=== PATIENT | male | born 1985 | race Caucasian/White ===

== ENCOUNTER 2021-11-13 20:11 | Inpatient (IN) | payer MEDICARE, SELFPAY ==
--- NOTE | ~2021-11-13 | CT_ITS ---
EXAMINATION: CT FEMUR WITH CONTRAST, LEFT CLINICAL INFORMATION: Erythema and swelling of the thigh. Rule out abscess. COMPARISON: None TECHNIQUE: Multidetector CT imaging of the left femur was performed after administration of 85 mL Omnipaque 350 intravenous contrast. Coronal and sagittal reformats are reviewed. This CT examination was performed using dose optimization techniques as appropriate, variously including the following: *Automated exposure control *Adjustment of mA and/or kV according to patient size (this includes techniques or standardized protocols for targeted exams where dose is matched to indication/reason for exam; i.e. extremities or head) *Use of iterative reconstruction technique DLP: 395 mGy-cm FINDINGS: There is a 12.5 x 7.3 x 5.9 cm peripherally enhancing collection in the left tensor fascia josé miguel muscle belly. There is surrounding fluid and stranding obscuring the fat planes between the tensor fascia josé miguel and adjacent rectus femoris and vastus lateralis. Fluid extends inferiorly from the collection along the fascia overlying the vastus lateralis. Extensive skin thickening and subcutaneous fat stranding throughout the proximal left thigh predominating laterally and anteriorly. There are smaller subcutaneous focal areas of phlegmonous change / developing abscesses, for example along the anterior thigh measuring 4.4 x 2.8 x 3.8 cm and along the lateral thigh, less well-defined measuring approximately 3.9 x 2.9 x 4.2 cm. There are a couple additional smaller focal densities in the lateral subcutaneous fat likely representing areas of additional phlegmonous change. No hip joint effusion. The inflammatory changes do not appear to involve the hip joint. No periosteal reaction or cortical destruction to suggest osteomyelitis. Mildly enlarged left inguinal lymph nodes with perilymphatic fat stranding compatible with reactive lymphadenitis. Imaged viscera are unremarkable. CT/CT femur LT w IV con IMPRESSION: * Large collection within the left tensor fascia josé miguel measuring up to 13 cm most compatible with an intramuscular abscess. There is obscuration/obliteration of the fat planes between this collection and the underlying rectus Morison masses lateralis. There may also be myositis of these muscles, however no definite abscess formation within. * Extensive skin thickening and subcutaneous fat stranding throughout the left thigh reflective of cellulitis. There are 2 dominant subcutaneous focal areas of inflammation reflective of phlegmonous change/developing abscesses as described. * No evidence of osteomyelitis or involvement of the left hip joint at this time. This critical result was discussed with Dr Gab Castle at 11/14/2021 12:04 AM and it was ascertained that the content and urgency of the report was understood at the time of direct communication.
[2021-11-13 20:24] VITALS: BP 139/83; PULSE 122; RESP 20; TEMP 38.3; O2SAT 96; BMI 29.2
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
[2021-11-13] MEDS: ceFAZolin Sodium 2 GM in 0.9 % Sodium Chloride 100 ML IV (21:58)
[2021-11-13] MEDS: diphenhydrAMINE HCL 50 MG/ML VIAL IVPUSH (22:00)
[2021-11-13] MEDS: HYDROmorphone HCl 1 MG/ML SYRINGE IVPUSH ×2 (22:00→22:13)
[2021-11-13] MEDS: 0.9 % Sodium Chloride 2,857.62 ML 2857.62 ML IV (22:01)
[2021-11-13 22:25] LABS: Basophils Absolute Auto 0.1 X10*3/uL (0.0-0.2); Basophils Percent Auto 0.3 % (0-2); Eosinophils Percent Auto 0.1 % (0-4); Hematocrit 35.9 % (42.0-52.0); Hemoglobin 11.9 g/dl (14.0-18.0); Imm Gran Abs Auto 0.11 X10*3/uL (0.00-0.03); Imm Gran Pct Auto 0.7 % (0.0-0.4); Lymphocytes Absolute Auto 1.8 X10*3/uL (1.2-4.9); Lymphocytes Percent Auto 11.6 % (20-40); MANUAL DIFF FLAG SCAN; Mean Corpuscular HGB Conc 33.1 g/dl (31.0-36.0); Mean Corpuscular Hemoglobin 29.2 pg (27.0-33.0); Mean Corpuscular Volume 88.2 fL (80.0-98.0); Mean Platelet Volume 9.7 fL (9.4-12.4); Monocytes Absolute Auto 1.6 X10*3/uL (0.1-1.2); Monocytes Percent Auto 10.3 % (2-11); Neutrophils Absolute Auto 11.8 x10*3/uL (2.0-8.3); Platelet Count 531 X10*3/uL (160-400); Red Blood Count 4.07 X10*6/uL (4.60-5.80); Red Cell Distribution Width 13.9 % (11.0-16.0); SCAN SMEAR FLAG 1; White Blood Count 15.4 X10*3/uL (4.8-10.8)
[2021-11-13 22:37] LABS: Lactic Acid 1.7 mmol/L (0.5-2.0)
[2021-11-13 22:50] LABS: COVID-19 Test Negative (Negative); IDNOW Serial# 16C4AD1C
[2021-11-13 22:54] LABS: SLIDE REVIEW VERIFIED
[2021-11-13] MEDS: HYDROmorphone HCl 2 MG/ML VIAL IVPUSH (22:56)
[2021-11-13] MEDS: Acetaminophen 325 MG TABLET 975 MG PO (22:57)
[2021-11-13 23:01] LABS: Alanine Aminotransferase 42 U/L (0-40); Albumin Level 3.2 g/dL (3.5-5.0); Alkaline Phosphatase 157 U/L (39-117); Anion Gap 16 (12-20); Aspartate Amino Transferase 37 U/L (5-37); Blood Urea Nitrogen 9 mg/dL (9-16); C Reactive Protein 18.18 mg/dL (< or = 0.50); Calcium 8.4 mg/dL (8.4-10.2); Carbon Dioxide 24 mmol/L (22-29); Chloride 95 mmol/L (96-108); Creatinine Clr Calc Pharmacy 129.4; Estimated Glomerular Filt Rate > 60; Glucose Random 90 mg/dL (60-115); Lipase 9 U/L (8-78); Potassium 4.4 mmol/L (3.3-5.1); Sodium 131 mmol/L (135-145)
[2021-11-13 23:05] LABS: Erythrocyte Sedimentation Rate 86 MM/HR (0-15)
[2021-11-13] MEDS: iohexoL 350 MG/ML 100 ML INFUS..BTL IV (23:34)
[2021-11-13 23:35] LABS: INTERNATIONAL NORM RATIO 1.5 (0.9-1.1); Prothrombin Time 17.3 SEC (10.0-13.1)
[2021-11-13 23:38] LABS: Partial Thromboplastin Time 26.6 SEC (26.0-36.4)
[2021-11-14] VITALS (15 sets, daily range): BP systolic 113–149; BP diastolic 60–85; PULSE 67–91; RESP 13–22; TEMP 26.3–37.5; O2SAT 93–99
[2021-11-14] MEDS: HYDROmorphone HCl 1 MG/ML SYRINGE IVPUSH (01:13)
[2021-11-14] MEDS: Morphine Sulfate 4 MG/ML CARTRIDGE IVPUSH (03:14)
[2021-11-14] MEDS: 0.9 % Sodium Chloride 1,000 ML 100 ML IVCONT ×2 (03:18→15:06)
[2021-11-14 03:42] LABS: Amphetamine Screen Urine Not Detected (Not Detect); Barbiturates, Urine Not Detected (Not Detect); Benzodiazepines Screen Urine Not Detected (Not Detect); Cannabinoid Screen Urine Not Detected (Not Detect); Cocaine Screen Urine POSITIVE (Not Detect); Fentanyl, urine POSITIVE (Not Detect); Opiate Screen Urine POSITIVE (Not Detect); Phencyclidine Screen Urine Not Detected (Not Detect)
--- NOTE | 2021-11-14 07:27 | PM.CNGS ---
History of Present Illness Consult details Consult date: 11/14/21 Narrative: 36-year-old male, here in the ER because of thigh pain. He says that he has had an area of swelling, pain and tenderness on left thigh for about a week now. He says the pain is severe . He denies drug use although he admits to taking cocaine yesterday because of pain. He denies any fever or chills. He denies any other complaints. He had a CAT scan showing a large deep abscess, intramuscular on the left anterolateral aspect of the thigh, tongue with 2 other superficial abscesses. Review of Systems Constitutional: Constitutional: Denies chills and Denies fever(s) Cardiovascular: Cardiovascular: Denies chest pain, Denies dyspnea and Denies dyspnea on exertion Respiratory: Respiratory: Denies cough, Denies dyspnea and Denies dyspnea on exertion Gastrointestinal: Gastrointestinal: Denies hematochezia and Denies change in bowel habits Genitourinary: Genitourinary: Denies hematuria and Denies difficulty urinating Musculoskeletal: Musculoskeletal: Denies back pain and Denies limited range of motion Neurologic: Denies focal weakness and Denies convulsions Psychiatric: Psychiatric: Denies depression and Denies mood swings PMFSH Social History Social History Advance Directives: No Advance Directives Information Provided: Yes Meds Allergies Allergy/AdvReac Type Severity Reaction Status Date / Time ibuprofen [From Motrin] AdvReac Unknown Verified 11/13/21 20:23 Active Medications: Current Medications Sodium Chloride (Ns) 1,000 mls @ 100 mls/hr IVCONT .Q10H [facility] Last Admin: 11/14/21 03:18 Dose: 100 mls/hr Cefazolin Sodium 1 gm/ Sodium (Chloride) 50 mls @ 100 mls/hr IV Q6H [facility] Last Admin: 11/14/21 06:18 Dose: 100 mls/hr Morphine Sulfate (Morphine Sulfate 4 Mg/Ml Cartridge) 4 mg IVPUSH Q4H PRN; Protocol PRN Reason: Pain, Severe (Pain Scale 7-10) Last Admin: 11/14/21 03:14 Dose: 4 mg Pharmacy Consult (Consult Rx Vancomycin Dosing) 1 each MISCELLANE DAILY PRN PRN Reason: Consult order Sodium Chloride (0.9 % Sodium Chloride Flush 3 Ml Syringe) 3 ml IVFLUSH QSHIFT NADIR Physical Exam Vital Signs: Vital Signs: Last Vital Signs Temp 98.7 F 11/14/21 00:20 Pulse 91 11/14/21 00:20 Resp 18 11/14/21 00:20 BP 134/70 11/14/21 00:20 Pulse Ox 94 11/14/21 00:20 O2 Del Method 11/14/21 00:20 BMI result Body Mass Index 29.2 Const: General: comfortable and no acute distress Orientation/consciousness: patient oriented x3 Neck: Neck: Yes no lymphadenopathy Resp: Auscultation: clear to auscultation bilaterally Cardio: Rhythm: regular rhythm GI: Palpation (GI): Soft to palpation, nontender and no guarding Neuro: General: patient oriented x3 Extrem: Other: Large indurated area on the left thigh proximally and nora lateral, very tender to touch, with 2 other areas of superficial fluctuant areas also on the left thigh Results Labs Result diagrams: 11/13/21 22:00 11/13/21 22:00 Labs: Abnormal lab results 11/13/21 11/13/21 11/13/21 Range/Units 22:00 22:00 22:00 WBC 15.4 H (4.8-10.8) X10*3/uL RBC 4.07 L (4.60-5.80) X10*6/uL Hgb 11.9 L (14.0-18.0) g/dl Hct 35.9 L (42.0-52.0) % Plt Count 531 H (160-400) X10*3/uL Immature Gran % (Auto) 0.7 H (0.0-0.4) % Neut % (Auto) 77.0 H (45-73) % Lymph % (Auto) 11.6 L (20-40) % [place] # (Auto) 1.6 H (0.1-1.2) X10*3/uL Abs Immat Gran (auto) 0.11 H (0.00-0.03) X10*3/uL Absolute Neuts (auto) 11.8 H (2.0-8.3) x10*3/uL ESR 86 H (0-15) MM/HR PT (10.0-13.1) SEC INR (0.9-1.1) Sodium 131 L (135-145) mmol/L Chloride 95 L (96-108) mmol/L ALT 42 H (0-40) U/L Alkaline Phosphatase 157 H (39-117) U/L C-Reactive Protein 18.18 H (< or = 0.50) mg/dL Albumin 3.2 L (3.5-5.0) g/dL Urine Opiates Screen (Not Detect) Urine Fentanyl Screen (Not Detect) Urine Cocaine Screen (Not Detect) 11/13/21 11/14/21 Range/Units 22:00 03:21 WBC (4.8-10.8) X10*3/uL RBC (4.60-5.80) X10*6/uL Hgb (14.0-18.0) g/dl Hct (42.0-52.0) % Plt Count (160-400) X10*3/uL Immature Gran % (Auto) (0.0-0.4) % Neut % (Auto) (45-73) % Lymph % (Auto) (20-40) % [place] # (Auto) (0.1-1.2) X10*3/uL Abs Immat Gran (auto) (0.00-0.03) X10*3/uL Absolute Neuts (auto) (2.0-8.3) x10*3/uL ESR (0-15) MM/HR PT 17.3 H (10.0-13.1) SEC INR 1.5 H (0.9-1.1) Sodium (135-145) mmol/L Chloride (96-108) mmol/L ALT (0-40) U/L Alkaline Phosphatase (39-117) U/L C-Reactive Protein (< or = 0.50) mg/dL Albumin (3.5-5.0) g/dL Urine Opiates Screen POSITIVE H (Not Detect) Urine Fentanyl Screen POSITIVE H (Not Detect) Urine Cocaine Screen POSITIVE H (Not Detect) Short CBC 11/13/21 Range/Units 22:00 WBC 15.4 H (4.8-10.8) X10*3/uL Hgb 11.9 L (14.0-18.0) g/dl Hct 35.9 L (42.0-52.0) % Plt Count 531 H (160-400) X10*3/uL BMP 11/13/21 22:00 Sodium 131 L Potassium 4.4 Chloride 95 L Carbon Dioxide 24 BUN 9 Creatinine 0.92 Calcium 8.4 Liver Function 11/13/21 Range/Units 22:00 Total Bilirubin 1.0 (0.0-1.0) mg/dL AST 37 (5-37) U/L ALT 42 H (0-40) U/L Alkaline Phosphatase 157 H (39-117) U/L Albumin 3.2 L (3.5-5.0) g/dL All other labs normal. Imaging Additional studies: Laboratory Results WBC 15.4 X10*3/uL (4.8-10.8) H 11/13/21 22:00 RBC 4.07 X10*6/uL (4.60-5.80) L 11/13/21 22:00 Hgb 11.9 g/dl (14.0-18.0) L 11/13/21 22:00 Hct 35.9 % (42.0-52.0) L 11/13/21 22:00 MCV 88.2 fL (80.0-98.0) 11/13/21 22:00 MCH 29.2 pg (27.0-33.0) 11/13/21 22:00 MCHC 33.1 g/dl (31.0-36.0) 11/13/21 22:00 RDW 13.9 % (11.0-16.0) 11/13/21 22:00 Plt Count 531 X10*3/uL (160-400) H 11/13/21 22:00 MPV 9.7 fL (9.4-12.4) 11/13/21 22:00 Immature Gran % (Auto) 0.7 % (0.0-0.4) H 11/13/21 22:00 Neut % (Auto) 77.0 % (45-73) H 11/13/21 22:00 Lymph % (Auto) 11.6 % (20-40) L 11/13/21 22:00 [place] % (Auto) 10.3 % (2-11) 11/13/21 22:00 Eos % (Auto) 0.1 % (0-4) 11/13/21 22:00 Baso % (Auto) 0.3 % (0-2) 11/13/21 22:00 Lymph # (Auto) 1.8 X10*3/uL (1.2-4.9) 11/13/21 22:00 [place] # (Auto) 1.6 X10*3/uL (0.1-1.2) H 11/13/21 22:00 Eos # (Auto) 0.0 X10*3/uL (0.0-0.4) 11/13/21 22:00 Baso # (Auto) 0.1 X10*3/uL (0.0-0.2) 11/13/21 22:00 Abs Immat Gran (auto) 0.11 X10*3/uL (0.00-0.03) H 11/13/21 22:00 Absolute Neuts (auto) 11.8 x10*3/uL (2.0-8.3) H 11/13/21 22:00 Absolute Nucleated RBC 0.000 X10*3/uL (0.0-0.012) 11/13/21 22:00 Nucleated RBC % (auto) 0.0 /100WBC (0.0-0.2) 11/13/21 22:00 Smear Tech's Comments VERIFIED 11/13/21 22:00 ESR 86 MM/HR (0-15) H 11/13/21 22:00 PT 17.3 SEC (10.0-13.1) H 11/13/21 22:00 INR 1.5 (0.9-1.1) H 11/13/21 22:00 APTT 26.6 SEC (26.0-36.4) 11/13/21 22:00 Sodium 131 mmol/L (135-145) L 11/13/21 22:00 Potassium 4.4 mmol/L (3.3-5.1) 11/13/21 22:00 Chloride 95 mmol/L (96-108) L 11/13/21 22:00 Carbon Dioxide 24 mmol/L (22-29) 11/13/21 22:00 Anion Gap 16 (12-20) 11/13/21 22:00 BUN 9 mg/dL (9-16) 11/13/21 22:00 Creatinine 0.92 mg/dL (0.5-1.4) 11/13/21 22:00 Estim Creat Clear Calc 129.4 11/13/21 22:00 Estimated GFR > 60 11/13/21 22:00 Random Glucose 90 mg/dL (60-115) 11/13/21 22:00 Lactic Acid 1.7 mmol/L (0.5-2.0) 11/13/21 22:00 Calcium 8.4 mg/dL (8.4-10.2) 11/13/21 22:00 Total Bilirubin 1.0 mg/dL (0.0-1.0) 11/13/21 22:00 AST 37 U/L (5-37) 11/13/21 22:00 ALT 42 U/L (0-40) H 11/13/21 22:00 Alkaline Phosphatase 157 U/L (39-117) H 11/13/21 22:00 C-Reactive Protein 18.18 mg/dL (< or = 0.50) H 11/13/21 22:00 Total Protein 8.0 g/dL (6.5-8.0) 11/13/21 22:00 Albumin 3.2 g/dL (3.5-5.0) L 11/13/21 22:00 Lipase 9 U/L (8-78) 11/13/21 22:00 Urine Opiates Screen POSITIVE (Not Detect) H 11/14/21 03:21 Urine Fentanyl Screen POSITIVE (Not Detect) H 11/14/21 03:21 Ur Barbiturates Screen Not Detected (Not Detect) 11/14/21 03:21 Ur Phencyclidine Scrn Not Detected (Not Detect) 11/14/21 03:21 Ur Amphetamines Screen Not Detected (Not Detect) 11/14/21 03:21 U Benzodiazepines Scrn Not Detected (Not Detect) 11/14/21 03:21 Urine Cocaine Screen POSITIVE (Not Detect) H 11/14/21 03:21 U Marijuana (THC) Screen Not Detected (Not Detect) 11/14/21 03:21 COVID-19 (ROB) Negative (Negative) 11/13/21 22:10 COVID-19 Clin Com See Note 11/13/21 22:[address] 11/13/21 23:41 IMPRESSION: * Large collection within the left tensor fascia josé miguel measuring up to 13 cm most compatible with an intramuscular abscess. There is obscuration/obliteration of the fat planes between this collection and the underlying rectus Morison masses lateralis. There may also be myositis of these muscles, however no definite abscess formation within. * Extensive skin thickening and subcutaneous fat stranding throughout the left thigh reflective of cellulitis. There are 2 dominant subcutaneous focal areas of inflammation reflective of phlegmonous change/developing abscesses as described. * No evidence of osteomyelitis or involvement of the left hip joint at this time. This critical result was discussed with Dr Gab Castle at 11/14/2021 12:04 AM and it was ascertained that the content and urgency of the report was understood at the time of direct communication. Assessment and Plan (1) Abscess of muscle of thigh: Status: Acute He has a large, deep thigh abscess as described above. He has multiple other facial abscess. I had told him that it would be best to proceed with I&D. This will be done under anesthesia. I explained him the technique of this procedure. I reviewed the risks including but not limited to bleeding, infections, pain, as well as the benefits and alternatives. He understands and wants to proceed.
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
--- NOTE | 2021-11-14 11:51 | PM.EVENT ---
Event Note Date of Service: 11/14/21 Event Note: urine test positive for fentanyl, cocaine, and opiates explained to patient that elevates his perioperative risks from anesthesia especially with the presence of fentanyl however, I and D's urgently needed to be done in view of the size, location severe pain and changes showing myositis this had been discussed with the anesthesiologist I also explained to the patient that his postop pain management may be challenging as well he says he understands the above
--- NOTE | 2021-11-14 12:28 | P.CONAN_ITS ---
PMFSH Active Problems Active Problems: All Active Problems (Updated 11/14/21 @ 00:49 by Gab Castle MD) Abscess of muscle of thigh (Acute) Family History Family history of problems with anesthesia: No Surgical History History of Problems with Anesthesia: No Social History Social History Patient Tobacco Use Status: Current everyday Tobacco user Tobacco use type: Cigarette Use of substances other than those prescribed or required for medical reasons: No Are you DNR?: No Advance Directives: No Advance Directives Information Provided: Yes Advance Directives on File: No service: No Current occupational status: employed Meds Allergies Allergy/AdvReac Type Severity Reaction Status Date / Time ibuprofen [From Motrin] AdvReac Unknown Verified 11/13/21 20:23 Active Medications: Current Medications Sodium Chloride (Ns) 1,000 mls @ 100 mls/hr IVCONT .Q10H [facility] Last Admin: 11/14/21 09:39 Dose: Not Given Cefazolin Sodium 1 gm/ Sodium (Chloride) 50 mls @ 100 mls/hr IV Q6H [facility] Last Infusion: 11/14/21 07:54 Dose: Infused Morphine Sulfate (Morphine Sulfate 4 Mg/Ml Cartridge) 4 mg IVPUSH Q4H PRN; Protocol PRN Reason: Pain, Severe (Pain Scale 7-10) Last Admin: 11/14/21 03:14 Dose: 4 mg Pharmacy Consult (Consult Rx Vancomycin Dosing) 1 each MISCELLANE DAILY PRN PRN Reason: Consult order Sodium Chloride (0.9 % Sodium Chloride Flush 3 Ml Syringe) 3 ml IVFLUSH QSHIFT [facility] Last Admin: 11/14/21 09:28 Dose: Not Given Exam Exam Date and Time: November 14, 2021 1228 Height,Weight and Vital Signs: Height 5 ft 11 in Weight 95.254 kg Last Vital Signs Temp 99.4 F 11/14/21 11:49 Pulse 86 11/14/21 11:49 Resp 16 11/14/21 11:49 BP 149/85 H 11/14/21 11:49 Pulse Ox 96 11/14/21 11:49 O2 Del Method 11/14/21 11:49 Pertinent Lab Results Pertinent Lab Results: Laboratory Tests 11/13/21 11/13/21 11/13/21 22:00 22:00 22:00 WBC 15.4 H RBC 4.07 L Hgb 11.9 L Hct 35.9 L MCV 88.2 MCH 29.2 MCHC 33.1 RDW 13.9 Plt Count 531 H MPV 9.7 Immature Gran % (Auto) 0.7 H Neut % (Auto) 77.0 H Lymph % (Auto) 11.6 L [place] % (Auto) 10.3 Eos % (Auto) 0.1 Baso % (Auto) 0.3 Lymph # (Auto) 1.8 [place] # (Auto) 1.6 H Eos # (Auto) 0.0 Baso # (Auto) 0.1 Abs Immat Gran (auto) 0.11 H Absolute Neuts (auto) 11.8 H Absolute Nucleated RBC 0.000 Nucleated RBC % (auto) 0.0 Smear Tech's Comments VERIFIED ESR 86 H PT INR APTT Sodium 131 L Potassium 4.4 Chloride 95 L Carbon Dioxide 24 Anion Gap 16 BUN 9 Creatinine 0.92 Estim Creat Clear Calc 129.4 Estimated GFR > 60 Random Glucose 90 Lactic Acid Calcium 8.4 Total Bilirubin 1.0 AST 37 ALT 42 H Alkaline Phosphatase 157 H C-Reactive Protein 18.18 H Total Protein 8.0 Albumin 3.2 L Lipase 9 Urine Opiates Screen Urine Fentanyl Screen Ur Barbiturates Screen Ur Phencyclidine Scrn Ur Amphetamines Screen U Benzodiazepines Scrn Urine Cocaine Screen U Marijuana (THC) Screen COVID-19 (ROB) COVID-19 Clin Com 11/13/21 11/13/21 11/13/21 22:00 22:00 22:10 WBC RBC Hgb Hct MCV MCH MCHC RDW Plt Count MPV Immature Gran % (Auto) Neut % (Auto) Lymph % (Auto) [place] % (Auto) Eos % (Auto) Baso % (Auto) Lymph # (Auto) [place] # (Auto) Eos # (Auto) Baso # (Auto) Abs Immat Gran (auto) Absolute Neuts (auto) Absolute Nucleated RBC Nucleated RBC % (auto) Smear Tech's Comments ESR PT 17.3 H INR 1.5 H APTT 26.6 Sodium Potassium Chloride Carbon Dioxide Anion Gap BUN Creatinine Estim Creat Clear Calc Estimated GFR Random Glucose Lactic Acid 1.7 Calcium Total Bilirubin AST ALT Alkaline Phosphatase C-Reactive Protein Total Protein Albumin Lipase Urine Opiates Screen Urine Fentanyl Screen Ur Barbiturates Screen Ur Phencyclidine Scrn Ur Amphetamines Screen U Benzodiazepines Scrn Urine Cocaine Screen U Marijuana (THC) Screen COVID-19 (ROB) Negative COVID-19 Clin Com See Note 11/14/21 03:21 WBC RBC Hgb Hct MCV MCH MCHC RDW Plt Count MPV Immature Gran % (Auto) Neut % (Auto) Lymph % (Auto) [place] % (Auto) Eos % (Auto) Baso % (Auto) Lymph # (Auto) [place] # (Auto) Eos # (Auto) Baso # (Auto) Abs Immat Gran (auto) Absolute Neuts (auto) Absolute Nucleated RBC Nucleated RBC % (auto) Smear Tech's Comments ESR PT INR APTT Sodium Potassium Chloride Carbon Dioxide Anion Gap BUN Creatinine Estim Creat Clear Calc Estimated GFR Random Glucose Lactic Acid Calcium Total Bilirubin AST ALT Alkaline Phosphatase C-Reactive Protein Total Protein Albumin Lipase Urine Opiates Screen POSITIVE H Urine Fentanyl Screen POSITIVE H Ur Barbiturates Screen Not Detected Ur Phencyclidine Scrn Not Detected Ur Amphetamines Screen Not Detected U Benzodiazepines Scrn Not Detected Urine Cocaine Screen POSITIVE H U Marijuana (THC) Screen Not Detected COVID-19 (ROB) COVID-19 Clin Com Airway Mallampati Class: II TM Dist: >3cm Neck ROM: Full Heart: rrr Lungs: cta Assessment and Plan Assessment Anesthesia Assessment: Anesthesia Plan Discussed and Chart Reviewed Final Anesthetic Review Family History of Problems with Anesthesia: No History of Problems with Anesthesia: No ASA Class: III and Emergency (Positive cocaine, heroin) Final Preanesthetic Review: No Changes in Pt Med Stat, Meds/Allgs Chart Reviewed and Consent Obtained/Reviewed Patient Risk: Intermediate Procedure Risk: Intermediate Anesthetic Plan Anesthetic Plan: GA Disposition: Standard PACU
--- NOTE | 2021-11-14 12:52 | W.PM.OPN ---
Operative Note Operative Note Date of Service: 11/14/21 Narrative: Preop diagnosis: Multiple abscesses, left thigh Postop diagnosis: Deep intermuscular abscess, left thigh and 2 superficial abscesses, left thigP Procedure: incision and drainage of a deep intramuscular abscess, left thigh, incision drainage of 2 superficial abscess, left thigh Surgeon: Nehemias Martinez MD The patient is a 36-year-old male who went to the ER because of left thigh pain and swelling for 1 week. He had a CAT scan showing a deep intramuscular abscess, large, has her fistula abscess as well also on the left thigh. He was in severe pain. I explained him that it is important to proceed with I&D of all the abscess cavities. I explained to the technique of this procedure. He understood and had given consent. He was brought to the operating room and placed supine under general anesthesia via laryngeal mask airway. The left thigh area starting from the left groin going distally was prepped and daped inthe usual sterile fahion. A surgical time-out was done.The patient received cefazolin 2 g IV preoperatively I then made a skin incision on the proximal anterolateral aspect of the left thigh based on the location of the deep intramuscular abscess seen on his CAT scan. This was carried down with electrocautery through the full-thickness of the skin subcutaneous fat. The fascia was then exposed. I incised the fascia with electrocautery to expose the quadriceps muscle fibers. I then did blunt dissection to separate the muscle fibers and immediately entered a large abscess cavity.Large amounts of pus was evacuated. I used my index finger to explore this abscess cavity to make sure that loculations were broken down. I inserted the tip of the suction catheter within the abscess cavity. About 250 cc of pus was drained from this area. I then copiously irrigated the cavity. I proceeded to apply a 1 in iodoform packing into the cavity. I proceeded to examine the distal thigh. There were 2 fluctuant areas, each about 4 cm in diameter. I made an incision on the skin overlying each area of fluctuance. An abscess cavity in the subcutaneous layer was entered on each site. I proceeded to dissect bluntly the cavity with my finger to make sure that loculations were taken down. I drained all the abscess using the suction catheter tip as well. I irrigated these two cavities as well and packed them lightly with iodoform packing. I covered the I and D sites with thick gauze and wrapped the thigh with Dami roll and Hugo bandage The patient tolerated the procedure well. There were no complications noted. Initial and final counts of sponges and instruments were correct. Estimated blood loss about 30 cc The patient was extubated without difficulty and transferred to the recovery room with stable vitals.
[2021-11-14] MEDS: oxyCODONE HCl Immed Release 5 MG TABLET 10 MG PO (13:07)
[2021-11-14] MEDS: fentaNYL citrate/PF 100 MCG/2 ML VIAL 50 MCG IVPUSH ×2 (13:10→13:16)
[2021-11-14] MEDS: Piperacillin Sodium/Tazobactam 3.375 GM in 0.9 % Sodium Chloride 50 ML IV ×2 (15:07→19:09)
[2021-11-14] MEDS: 0.9 % Sodium Chloride Flush 3 ML SYRINGE IVFLUSH (15:19)
--- NOTE | 2021-11-14 16:14 | PHA.MEDREC ---
Pharmacy Consult ? Medication Reconciliation Pharmacy has completed the medication reconciliation.
[2021-11-15] VITALS (7 sets, daily range): BP systolic 112–131; BP diastolic 57–76; PULSE 61–82; RESP 16–20; TEMP 35.8–37.1; O2SAT 95–99
[2021-11-15] MEDS: Piperacillin Sodium/Tazobactam 3.375 GM in 0.9 % Sodium Chloride 50 ML IV ×4 (01:29→20:28)
[2021-11-15] MEDS: 0.9 % Sodium Chloride 1,000 ML 100 ML IVCONT ×2 (03:07→12:47)
--- NOTE | 2021-11-15 09:24 | PM.HPGS ---
History of Present Illness History of Present Illness Date of Service: 11/14/21 Chief complaint: intramuscular thigh abscess Narrative: Bhupinder An is a 36 year old male with left thigh pain, swelling and tenderness. He says he has hadd this for over a week now. He denies fever or chills but says the pain has been worsening. He denies trauma to the area. He denies IVDA but admits to taking cocaine the day prior because of pain. He had a CT scan showing a large intramuscular abscess on the left thigh on the anterolateral aspect, along with subcutaneous abscesses as well. Review of Systems Constitutional: Constitutional: Denies chills and Denies fever(s) Cardiovascular: Cardiovascular: Denies chest pain, Denies dyspnea and Denies dyspnea on exertion Respiratory: Respiratory: Denies cough, Denies dyspnea and Denies dyspnea on exertion Gastrointestinal: Gastrointestinal: Denies hematochezia and Denies change in bowel habits Genitourinary: Genitourinary: Denies hematuria and Denies difficulty urinating Musculoskeletal: Musculoskeletal: Reports abnormal gait, Denies back pain and Denies limited range of motion Neurologic: Reports abnormal gait, Denies focal weakness and Denies convulsions Psychiatric: Psychiatric: Denies depression and Denies mood swings PMFSH Past Medical History Medical History (Updated 11/15/21 @ 09:28 by Nehemias Martinez MD) Drug abuse Social History Social History Household Members: Friend(s) Housing: Condominium Do you presently have visiting nurse or other home services: No Patient Tobacco Use Status: Current everyday Tobacco user Tobacco use type: Cigarette Smoked in Last 30 Days: Yes e-Cigarette/Vaping Use: Never Used Patient Interested in Nicotine Replacement: No Patient Given Instructions on How to Stop Smoking: No Second Hand Smoke Exposure: Yes Use of substances other than those prescribed or required for medical reasons: No Last Used Substance: Just Prior to Admission Last Used Substance Other:: pt stated in ED he had did two bags of heroin intranasally Currently Displaying Signs/Symptoms of Drug Intoxication Withdrawal: No Any prior treatment program specific to substance use: No Have you been hit, kicked, punched, or otherwise hurt by someone within the past year? If so, by whom?: No Do you feel safe in your current relationship?: Yes Is there a partner from a previous relationship who is making you feel unsafe now?: No Are you made to feel afraid or neglected: No Are you DNR?: No Advance Directives: No Advance Directives Information Provided: Yes Advance Directives on File: No Do you have thoughts of harming others: None Do you have a plan to hurt others: No Plan Recently lost weight without trying: No How much weight loss: Not applicable Eating poorly because of decreased appetite: No Nutrition screen score: 0 Nutrition Risks: No Nutritional Risk Poor oral hygiene: No service: No Current occupational status: employed Meds Allergies Allergy/AdvReac Type Severity Reaction Status Date / Time ibuprofen [From Motrin] AdvReac Unknown Verified 11/13/21 20:23 Active Medications: Current Medications Fentanyl (Fentanyl Citrate/Pf 100 Mcg/2 Ml Vial) 50 mcg IVPUSH Q5M PRN; Protocol PRN Reason: Pain, Severe (Pain Scale 7-10) Last Admin: 11/14/21 13:16 Dose: 50 mcg Sodium Chloride (Ns) 1,000 mls @ 80 mls/hr IVCONT .[id number] [facility] Last Admin: 11/15/21 03:07 Dose: 100 mls/hr Piperacillin Sod/Tazobactam (Sod 3.375 gm/ Sodium Chloride) 50 mls @ 100 mls/hr IV Q6H [facility] Last Admin: 11/15/21 09:03 Dose: 100 mls/hr Morphine Sulfate (Morphine Sulfate 4 Mg/Ml Cartridge) 4 mg IVPUSH Q4H PRN; Protocol PRN Reason: Pain, Severe (Pain Scale 7-10) Last Admin: 11/14/21 03:14 Dose: 4 mg Morphine Sulfate (Morphine Sulfate 4 Mg/Ml Cartridge) 3 mg IVPUSH Q3H PRN; Protocol PRN Reason: Pain, Severe (Pain Scale 7-10) Oxycodone HCl (Oxycodone Hcl Immed Release 5 Mg Tablet) 10 mg PO Q4H PRN PRN Reason: Pain, Moderate (Pain Scale 4-6 Pharmacy Consult (Consult Rx Vancomycin Dosing) 1 each MISCELLANE DAILY PRN PRN Reason: Consult order Sodium Chloride (0.9 % Sodium Chloride Flush 3 Ml Syringe) 3 ml IVFLUSH QSHIFT [facility] Last Admin: 11/15/21 09:03 Dose: Not Given Home Medications Medication Instructions Recorded Confirmed Last Taken Type No Known Home Meds 11/14/21 11/14/21 Unknown History Physical Exam Vital Signs: Vital Signs: Last Vital Signs Temp 96.8 F 11/15/21 08:00 Pulse 82 11/15/21 08:00 Resp 18 11/15/21 08:00 BP 112/59 L 11/15/21 08:00 Pulse Ox 99 11/15/21 08:00 O2 Del Method 11/15/21 08:00 BMI result Body Mass Index 29.2 Const: Other: c/o pain on left thigh General: no acute distress Orientation/consciousness: patient oriented x3 Neck: Neck: Yes no lymphadenopathy Resp: Auscultation: clear to auscultation bilaterally Cardio: Rhythm: regular rhythm GI: Palpation (GI): Soft to palpation, nontender and no guarding Neuro: General: patient oriented x3 Extrem: Other: marked induration on the anterolateral proximal thigh, very tender, with more superficial fluctuant areas on the more distal thigh x 2, lateral and anterior Results Results Additional studies: Laboratory Results WBC 15.4 X10*3/uL (4.8-10.8) H 11/13/21 22:00 RBC 4.07 X10*6/uL (4.60-5.80) L 11/13/21 22:00 Hgb 11.9 g/dl (14.0-18.0) L 11/13/21 22:00 Hct 35.9 % (42.0-52.0) L 11/13/21 22:00 MCV 88.2 fL (80.0-98.0) 11/13/21 22:00 MCH 29.2 pg (27.0-33.0) 11/13/21 22:00 MCHC 33.1 g/dl (31.0-36.0) 11/13/21 22:00 RDW 13.9 % (11.0-16.0) 11/13/21 22:00 Plt Count 531 X10*3/uL (160-400) H 11/13/21 22:00 MPV 9.7 fL (9.4-12.4) 11/13/21 22:00 Immature Gran % (Auto) 0.7 % (0.0-0.4) H 11/13/21 22:00 Neut % (Auto) 77.0 % (45-73) H 11/13/21 22:00 Lymph % (Auto) 11.6 % (20-40) L 11/13/21 22:00 [place] % (Auto) 10.3 % (2-11) 11/13/21 22:00 Eos % (Auto) 0.1 % (0-4) 11/13/21 22:00 Baso % (Auto) 0.3 % (0-2) 11/13/21 22:00 Lymph # (Auto) 1.8 X10*3/uL (1.2-4.9) 11/13/21 22:00 [place] # (Auto) 1.6 X10*3/uL (0.1-1.2) H 11/13/21 22:00 Eos # (Auto) 0.0 X10*3/uL (0.0-0.4) 11/13/21 22:00 Baso # (Auto) 0.1 X10*3/uL (0.0-0.2) 11/13/21 22:00 Abs Immat Gran (auto) 0.11 X10*3/uL (0.00-0.03) H 11/13/21 22:00 Absolute Neuts (auto) 11.8 x10*3/uL (2.0-8.3) H 11/13/21 22:00 Absolute Nucleated RBC 0.000 X10*3/uL (0.0-0.012) 11/13/21 22:00 Nucleated RBC % (auto) 0.0 /100WBC (0.0-0.2) 11/13/21 22:00 Smear Tech's Comments VERIFIED 11/13/21 22:00 ESR 86 MM/HR (0-15) H 11/13/21 22:00 PT 17.3 SEC (10.0-13.1) H 11/13/21 22:00 INR 1.5 (0.9-1.1) H 11/13/21 22:00 APTT 26.6 SEC (26.0-36.4) 11/13/21 22:00 Sodium 131 mmol/L (135-145) L 11/13/21 22:00 Potassium 4.4 mmol/L (3.3-5.1) 11/13/21 22:00 Chloride 95 mmol/L (96-108) L 11/13/21 22:00 Carbon Dioxide 24 mmol/L (22-29) 11/13/21 22:00 Anion Gap 16 (12-20) 11/13/21 22:00 BUN 9 mg/dL (9-16) 11/13/21 22:00 Creatinine 0.92 mg/dL (0.5-1.4) 11/13/21 22:00 Estim Creat Clear Calc 129.4 11/13/21 22:00 Estimated GFR > 60 11/13/21 22:00 Random Glucose 90 mg/dL (60-115) 11/13/21 22:00 Lactic Acid 1.7 mmol/L (0.5-2.0) 11/13/21 22:00 Calcium 8.4 mg/dL (8.4-10.2) 11/13/21 22:00 Total Bilirubin 1.0 mg/dL (0.0-1.0) 11/13/21 22:00 AST 37 U/L (5-37) 11/13/21 22:00 ALT 42 U/L (0-40) H 11/13/21 22:00 Alkaline Phosphatase 157 U/L (39-117) H 11/13/21 22:00 C-Reactive Protein 18.18 mg/dL (< or = 0.50) H 11/13/21 22:00 Total Protein 8.0 g/dL (6.5-8.0) 11/13/21 22:00 Albumin 3.2 g/dL (3.5-5.0) L 11/13/21 22:00 Lipase 9 U/L (8-78) 11/13/21 22:00 Urine Opiates Screen POSITIVE (Not Detect) H 11/14/21 03:21 Urine Fentanyl Screen POSITIVE (Not Detect) H 11/14/21 03:21 Ur Barbiturates Screen Not Detected (Not Detect) 11/14/21 03:21 Ur Phencyclidine Scrn Not Detected (Not Detect) 11/14/21 03:21 Ur Amphetamines Screen Not Detected (Not Detect) 11/14/21 03:21 U Benzodiazepines Scrn Not Detected (Not Detect) 11/14/21 03:21 Urine Cocaine Screen POSITIVE (Not Detect) H 11/14/21 03:21 U Marijuana (THC) Screen Not Detected (Not Detect) 11/14/21 03:21 COVID-19 (ROB) Negative (Negative) 11/13/21 22:10 COVID-19 Clin Com See Note 11/13/21 22:[address] 11/13/21 23:41 IMPRESSION: * Large collection within the left tensor fascia josé miguel measuring up to 13 cm most compatible with an intramuscular abscess. There is obscuration/obliteration of the fat planes between this collection and the underlying rectus Morison masses lateralis. There may also be myositis of these muscles, however no definite abscess formation within. * Extensive skin thickening and subcutaneous fat stranding throughout the left thigh reflective of cellulitis. There are 2 dominant subcutaneous focal areas of inflammation reflective of phlegmonous change/developing abscesses as described. * No evidence of osteomyelitis or involvement of the left hip joint at this time. This critical result was discussed with Dr Gab Castle at 11/14/2021 12:04 AM and it was ascertained that the content and urgency of the report was understood at the time of direct communication. Assessment and Plan (1) Abscess of muscle of thigh: Status: Acute He has a large intramuscular abscess as described on CT, seen on the thigh. He has 2 other more superficial abscesses on the same thigh distally. He denies IVDA but urine tox screen is positive for fentanyl, cocaine and opiates. Likely cause of these abscesses therefore is skin popping/IV drug abuse. I explained to him it is best to proceed with I and D in the OR under anesthesia. I explained the risks including but not limited to bleeding infections, postop pain and anesthesia risks, He udnerstands his anesthesia risks are high in view of his drug use especially with fentanyl. He understands and has given consent. This pt had been discussed with the anesthesiologist. Quality Stroke Does the patient have a stroke diagnosis?: No VTE Prior VTE?: No VTE Risk Level:: Medical - low VTE Device Contraindication: N/A - Device Ordered VTE Drug Contraindication: Treatment Not Indicated Procedures Date of Service Date of Service: 11/14/21
--- NOTE | 2021-11-15 09:34 | P.PNGS_ITS ---
Subjective Subjective Date of Service: 11/15/21 Interval history: feels much better less pain on thigh Physical Exam Vital Signs: Vital Signs: Last Vital Signs Temp 96.8 F 11/15/21 08:00 Pulse 82 11/15/21 08:00 Resp 18 11/15/21 08:00 BP 112/59 L 11/15/21 08:00 Pulse Ox 99 11/15/21 08:00 O2 Del Method 11/15/21 08:00 BMI result Body Mass Index 29.2 Const: General: comfortable and no acute distress Resp: Effort & Inspection: normal respiratory effort Cardio: Rate: regular rate GI: Palpation (GI): Soft to palpation Extrem: Other: dressings dry on left thigh, thigh much less swollen, softer, not as tender Objective Data Active Medications Fentanyl (Fentanyl Citrate/Pf 100 Mcg/2 Ml Vial) 50 mcg IVPUSH Q5M PRN; Protocol PRN Reason: Pain, Severe (Pain Scale 7-10) Last Admin: 11/14/21 13:16 Dose: 50 mcg Documented By: DAVID Sodium Chloride (Ns) 1,000 mls @ 80 mls/hr IVCONT .[id number] [facility] Last Admin: 11/15/21 03:07 Dose: 100 mls/hr Documented By: NATHAN Piperacillin Sod/Tazobactam (Sod 3.375 gm/ Sodium Chloride) 50 mls @ 100 mls/hr IV Q6H [facility] Last Admin: 11/15/21 09:03 Dose: 100 mls/hr Documented By: MELISA Morphine Sulfate (Morphine Sulfate 4 Mg/Ml Cartridge) 4 mg IVPUSH Q4H PRN; Protocol PRN Reason: Pain, Severe (Pain Scale 7-10) Last Admin: 11/14/21 03:14 Dose: 4 mg Documented By: SUHAS Morphine Sulfate (Morphine Sulfate 4 Mg/Ml Cartridge) 3 mg IVPUSH Q3H PRN; Protocol PRN Reason: Pain, Severe (Pain Scale 7-10) Oxycodone HCl (Oxycodone Hcl Immed Release 5 Mg Tablet) 10 mg PO Q4H PRN PRN Reason: Pain, Moderate (Pain Scale 4-6 Pharmacy Consult (Consult Rx Vancomycin Dosing) 1 each MISCELLANE DAILY PRN PRN Reason: Consult order Sodium Chloride (0.9 % Sodium Chloride Flush 3 Ml Syringe) 3 ml IVFLUSH QSHIFT [facility] Last Admin: 11/15/21 09:03 Dose: Not Given Documented By: MELISA Non-Admin Reason: IV Running Labs CBC & Chem 7: 11/13/21 22:00 11/13/21 22:00 Microbiology Microbiology Results: Microbiology 11/14/21 03:22 Blood Culture - Preliminary Blood - Venous No growth after 24 hours. 11/13/21 22:00 Blood Culture - Preliminary Blood - Venous No growth after 24 hours. 11/14/21 Unknown Gram Stain - Final Thigh Left Procedures Date of Service Date of Service: 11/15/21 Progress Note: A&P Assessment and plan (1) Abscess of muscle of thigh: Status: Acute Assessment and Plan: S/P I and D in OR large amounts of pus from intramuscular cavity drained packing in place plan to change dressings, dc packing tomorrow IV abx await cultures Time Spent With Patient Time: Total time spent is greater than 50% in coordination of care (as documented) at patient's floor/unit and/or counseling patient: Quality Stroke Does the patient have a stroke diagnosis?: No VTE Prior VTE?: No VTE Risk Level:: Medical - low VTE Device Contraindication: N/A - Device Ordered VTE Drug Contraindication: Treatment Not Indicated
--- NOTE | 2021-11-15 10:04 | MHC.RECOVRN ---
Met with pt briefly to assess for withdrawal as pt had reported using heroin IN. Upon entering, pt laying in bed, asleep, wakes to voice. Introduced self and role, pt denies withdrawal symptoms at this time and reports pain management is currently adequate. T/w available if needed.
[2021-11-15] MEDS: oxyCODONE HCl Immed Release 5 MG TABLET 10 MG PO ×2 (15:17→20:27)
[2021-11-15] MEDS: 0.9 % Sodium Chloride Flush 3 ML SYRINGE IVFLUSH (20:28)
[2021-11-16] MEDS: oxyCODONE HCl Immed Release 5 MG TABLET 10 MG PO ×2 (02:16→07:51)
[2021-11-16] MEDS: Piperacillin Sodium/Tazobactam 3.375 GM in 0.9 % Sodium Chloride 50 ML IV ×3 (02:17→13:25)
[2021-11-16 03:16] VITALS: BP 119/68; PULSE 58; RESP 16; TEMP 35.9; O2SAT 100
[2021-11-16] MEDS: 0.9 % Sodium Chloride Flush 3 ML SYRINGE IVFLUSH (07:44)
[2021-11-16 08:00] VITALS: BP 120/60; PULSE 64; RESP 20; TEMP 36.1; O2SAT 93
--- NOTE | 2021-11-16 09:49 | PM.PNGS ---
Subjective Subjective Date of Service: 11/16/21 Interval history: c/o pain on I and D sites altouugh better than preop wants to go home Physical Exam Vital Signs: Vital Signs: Last Vital Signs Temp 97.0 F 11/16/21 08:00 Pulse 64 11/16/21 08:00 Resp 20 11/16/21 08:00 BP 120/60 11/16/21 08:00 Pulse Ox 93 11/16/21 08:00 O2 Del Method 11/16/21 08:00 BMI result Body Mass Index 29.2 Const: General: no acute distress Resp: Effort & Inspection: normal respiratory effort Cardio: Rate: regular rate GI: Palpation (GI): Soft to palpation and nontender Extrem: Other: left thigh - swelling much improved packings dc'ed no cellulitis Objective Data Active Medications Fentanyl (Fentanyl Citrate/Pf 100 Mcg/2 Ml Vial) 50 mcg IVPUSH Q5M PRN; Protocol PRN Reason: Pain, Severe (Pain Scale 7-10) Last Admin: 11/14/21 13:16 Dose: 50 mcg Documented By: DAVID Piperacillin Sod/Tazobactam (Sod 3.375 gm/ Sodium Chloride) 50 mls @ 100 mls/hr IV Q6H COUNT INCLUDES THE [facility] Last Infusion: 11/16/21 09:14 Dose: 0 mls/hr Documented By: MELISA Morphine Sulfate (Morphine Sulfate 4 Mg/Ml Cartridge) 3 mg IVPUSH Q3H PRN; Protocol PRN Reason: Pain, Severe (Pain Scale 7-10) Ondansetron HCl (Ondansetron Hcl 4 Mg/2 Ml Vial) 4 mg IVPUSH Q6H PRN PRN Reason: Nausea Oxycodone HCl (Oxycodone Hcl Immed Release 5 Mg Tablet) 10 mg PO Q4H PRN PRN Reason: Pain, Moderate (Pain Scale 4-6 Last Admin: 11/16/21 07:51 Dose: 10 mg Documented By: MELISA Pharmacy Consult (Consult Rx Vancomycin Dosing) 1 each MISCELLANE DAILY PRN PRN Reason: Consult order Sodium Chloride (0.9 % Sodium Chloride Flush 3 Ml Syringe) [facility] Last Admin: 11/16/21 07:44 Dose: 3 ml Documented By: MELISA Labs CBC & Chem 7: 11/13/21 22:00 11/13/21 22:00 Microbiology Microbiology Results: Microbiology 11/14/21 03:22 Blood Culture - Preliminary Blood - Venous No growth after 48 hours. 11/13/21 22:00 Blood Culture - Preliminary Blood - Venous No growth after 48 hours. 11/14/21 Unknown Gram Stain - Final Thigh Left Routine Culture - Final Streptococcus pyogenes (Grp A) Procedures Date of Service Date of Service: 11/16/21 Progress Note: A&P Assessment and plan (1) Abscess of muscle of thigh: Status: Acute Assessment and Plan: S/P I and D - deep intramuscular abscess and 2 superficial abscesses Strep pyogenes on cultures ID consult still pending on Zosyn dressings changed packings removed Time Spent With Patient Time: Total time spent is greater than 50% in coordination of care (as documented) at patient's floor/unit and/or counseling patient: Quality Stroke Does the patient have a stroke diagnosis?: No VTE Prior VTE?: No VTE Risk Level:: Medical - low VTE Device Contraindication: N/A - Device Ordered VTE Drug Contraindication: Treatment Not Indicated
[2021-11-16] MEDS: ondansetron HCL 4 MG/2 ML VIAL IVPUSH (10:00)
[2021-11-16] MEDS: Morphine Sulfate 4 MG/ML CARTRIDGE 3 MG IVPUSH (10:10)
[2021-11-16 10:43] LABS: Hematocrit 34.5 % (42.0-52.0); Hemoglobin 11.5 g/dl (14.0-18.0); Mean Corpuscular HGB Conc 33.3 g/dl (31.0-36.0); Mean Corpuscular Hemoglobin 29.6 pg (27.0-33.0); Mean Corpuscular Volume 88.9 fL (80.0-98.0); Mean Platelet Volume 10.2 fL (9.4-12.4); Platelet Count 592 X10*3/uL (160-400); Red Blood Count 3.88 X10*6/uL (4.60-5.80); Red Cell Distribution Width 14.5 % (11.0-16.0); White Blood Count 7.4 X10*3/uL (4.8-10.8)
[2021-11-16 11:35] VITALS: BP 128/60; PULSE 56; RESP 20; TEMP 36.3; O2SAT 96
--- NOTE | 2021-11-16 12:22 | MHC.RECOVRN ---
Met with pt in 373 to follow up and assess for withdrawal. Spoke with pts RN who reports pt had been vomiting and writhing in bed. Upon entering pts room, pt in bed, eyes closed, diaphoretic and pale. Pt does report feeling withdrawal symptoms and is interested in utilizing methadone to help manage symptoms. Pt has never received methadone before. Pt reports using heroin, [place], 2 bundles daily x a couple months. Was unable to complete full history due to pt feeling sick. Discussed with Malena Reyez APRN. Will continue to follow.
[2021-11-16] MEDS: methADONE HCl 20 MG/2 ML ORAL.CONC 30 MG PO (13:26)
[2021-11-16 15:32] VITALS: BP 136/81; PULSE 53; RESP 17; TEMP 36.5; O2SAT 94
--- NOTE | 2021-11-16 16:39 | HO.POSTANES ---
Post Anesthesia Evaluation Post Anesthesia Evaluation Vital Signs: Vital Signs Temp Pulse Resp BP Pulse Ox O2 Del Method 11/16/21 15:32 97.7 F 53 17 136/81 94 Room Air 11/16/21 11:35 97.4 F 56 20 128/60 96 Room Air 11/16/21 08:00 97.0 F 64 20 120/60 93 Room Air Anesthesia: General Mental Status: Awake Pain Control: Satisfactory Nausea/Vomiting: None (Z) Hydration: Adequate Anesthesia-Related Issues: No Anes. Related Issues
--- NOTE | 2021-11-16 17:25 | PC.NURSE ---
PT noted to be on the phone and pacing in room at 1700, asked to have IV removed, said he was leaving and that he let know earlier that he might leave AMA. IV removed and escorted to front entrance by hospital staff.
--- NOTE | 2021-11-17 10:02 | PM.DS ---
DS: Providers Provider Date of Service: 11/17/21 Date of admission: 11/14/21 00:40 Date of discharge: 11/16/21 Primary care physician: Unknown Physician Consults: 11/15/21 13:25 Consult to Infectious Diseases Routine Consulting Provider: Franci Knight Reason for consultation: thigh abscess, Strep pyogenes 11/16/21 09:48 Consult to Infectious Diseases Routine Consulting Provider: Franci Knight Reason for consultation: thigh abscess, Strep pyogenes DS: Diagnosis Discharge Diagnosis (1) Abscess of muscle of thigh: Status: Acute DS: Summary Hospital Course Hospital Course: 36M with polysubstance abuse, who came to the ED on the night of 11/13/2021 for left thigh pain, swelling and tenderness. His CT showed a large deep intramuscualr abscess on the proximal left thigh and 2 other superficial abscesses. He underwent I and D of these abscesses in the OR under anesthesia. Large amounts of pus was drained from the intramuscular cavity. Etiology was likely from skinpopping/IVDA. His urine tox screen was positive for fentanyl, opiates, and cocaine. Packings were placed. These were removed on POD 2 with dressings change. He was on IV Zosyn. CUltures showed Strep pyoegenes. ID consult was requested. He whoever signed out AMA on 11/16/2021. He understood potential implications with this decision including sepsis and reaccumulation of abscess. He insisted on leaving however. Time Spent with Patient Time attestation: Total time spent providing and/or coordinating discharge services: Discharge coordination time: Less than 30 minutes Quality: Safe Use of Opioids Does Pt have an Active Cancer Diagnosis on the Problem List?: No Quality: Stroke Does the patient have a stroke diagnosis?: No Physical Exam Vital Signs: Vital Signs: Last Vital Signs Temp 97.7 F 11/16/21 15:32 Pulse 53 11/16/21 15:32 Resp 17 11/16/21 15:32 BP 136/81 11/16/21 15:32 Pulse Ox 94 11/16/21 15:32 O2 Del Method 11/16/21 15:32 BMI result Body Mass Index 29.2 Const: General: no acute distress Resp: Effort & Inspection: normal respiratory effort Cardio: Rate: regular rate GI: Palpation (GI): Soft to palpation and nontender Extrem: Other: I and D wound on left thigh x 3, still with some edema but much improved DS: Data Data Completed and Pending Labs on day of discharge: Laboratory Results - last 24 hr 11/16/21 10:26 WBC 7.4 RBC 3.88 L Hgb 11.5 L Hct 34.5 L MCV 88.9 MCH 29.6 MCHC 33.3 RDW 14.5 Plt Count 592 H MPV 10.2 Absolute Nucleated RBC 0.000 Nucleated RBC % (auto) 0.0 Preliminary micro results at discharge 11/14/21 03:22 Blood Culture - Preliminary Blood - Venous No growth after 48 hours. 11/13/21 22:00 Blood Culture - Preliminary Blood - Venous No growth after 48 hours. Laboratory Results WBC 7.4 X10*3/uL (4.8-10.8) 11/16/21 10:26 RBC 3.88 X10*6/uL (4.60-5.80) L 11/16/21 10:26 Hgb 11.5 g/dl (14.0-18.0) L 11/16/21 10:26 Hct 34.5 % (42.0-52.0) L 11/16/21 10:26 MCV 88.9 fL (80.0-98.0) 11/16/21 10:26 MCH 29.6 pg (27.0-33.0) 11/16/21 10:26 MCHC 33.3 g/dl (31.0-36.0) 11/16/21 10:26 RDW 14.5 % (11.0-16.0) 11/16/21 10:26 Plt Count 592 X10*3/uL (160-400) H 11/16/21 10:26 MPV 10.2 fL (9.4-12.4) 11/16/21 10:26 Immature Gran % (Auto) 0.7 % (0.0-0.4) H 11/13/21 22:00 Neut % (Auto) 77.0 % (45-73) H 11/13/21 22:00 Lymph % (Auto) 11.6 % (20-40) L 11/13/21 22:00 [place] % (Auto) 10.3 % (2-11) 11/13/21 22:00 Eos % (Auto) 0.1 % (0-4) 11/13/21 22:00 Baso % (Auto) 0.3 % (0-2) 11/13/21 22:00 Lymph # (Auto) 1.8 X10*3/uL (1.2-4.9) 11/13/21 22:00 [place] # (Auto) 1.6 X10*3/uL (0.1-1.2) H 11/13/21 22:00 Eos # (Auto) 0.0 X10*3/uL (0.0-0.4) 11/13/21 22:00 Baso # (Auto) 0.1 X10*3/uL (0.0-0.2) 11/13/21 22:00 Abs Immat Gran (auto) 0.11 X10*3/uL (0.00-0.03) H 11/13/21 22:00 Absolute Neuts (auto) 11.8 x10*3/uL (2.0-8.3) H 11/13/21 22:00 Absolute Nucleated RBC 0.000 X10*3/uL (0.0-0.012) 11/16/21 10:26 Nucleated RBC % (auto) 0.0 /100WBC (0.0-0.2) 11/16/21 10:26 Smear Tech's Comments VERIFIED 11/13/21 22:00 ESR 86 MM/HR (0-15) H 11/13/21 22:00 PT 17.3 SEC (10.0-13.1) H 11/13/21 22:00 INR 1.5 (0.9-1.1) H 11/13/21 22:00 APTT 26.6 SEC (26.0-36.4) 11/13/21 22:00 Sodium 131 mmol/L (135-145) L 11/13/21 22:00 Potassium 4.4 mmol/L (3.3-5.1) 11/13/21 22:00 Chloride 95 mmol/L (96-108) L 11/13/21 22:00 Carbon Dioxide 24 mmol/L (22-29) 11/13/21 22:00 Anion Gap 16 (12-20) 11/13/21 22:00 BUN 9 mg/dL (9-16) 11/13/21 22:00 Creatinine 0.92 mg/dL (0.5-1.4) 11/13/21 22:00 Estim Creat Clear Calc 129.4 11/13/21 22:00 Estimated GFR > 60 11/13/21 22:00 Random Glucose 90 mg/dL (60-115) 11/13/21 22:00 Lactic Acid 1.7 mmol/L (0.5-2.0) 11/13/21 22:00 Calcium 8.4 mg/dL (8.4-10.2) 11/13/21 22:00 Total Bilirubin 1.0 mg/dL (0.0-1.0) 11/13/21 22:00 AST 37 U/L (5-37) 11/13/21 22:00 ALT 42 U/L (0-40) H 11/13/21 22:00 Alkaline Phosphatase 157 U/L (39-117) H 11/13/21 22:00 C-Reactive Protein 18.18 mg/dL (< or = 0.50) H 11/13/21 22:00 Total Protein 8.0 g/dL (6.5-8.0) 11/13/21 22:00 Albumin 3.2 g/dL (3.5-5.0) L 11/13/21 22:00 Lipase 9 U/L (8-78) 11/13/21 22:00 Urine Opiates Screen POSITIVE (Not Detect) H 11/14/21 03:21 Urine Fentanyl Screen POSITIVE (Not Detect) H 11/14/21 03:21 Ur Barbiturates Screen Not Detected (Not Detect) 11/14/21 03:21 Ur Phencyclidine Scrn Not Detected (Not Detect) 11/14/21 03:21 Ur Amphetamines Screen Not Detected (Not Detect) 11/14/21 03:21 U Benzodiazepines Scrn Not Detected (Not Detect) 11/14/21 03:21 Urine Cocaine Screen POSITIVE (Not Detect) H 11/14/21 03:21 U Marijuana (THC) Screen Not Detected (Not Detect) 11/14/21 03:21 COVID-19 (ROB) Negative (Negative) 11/13/21 22:10 COVID-19 Clin Com See Note 11/13/21 22:[address] 11/13/21 23:41 IMPRESSION: * Large collection within the left tensor fascia josé miguel measuring up to 13 cm most compatible with an intramuscular abscess. There is obscuration/obliteration of the fat planes between this collection and the underlying rectus Morison masses lateralis. There may also be myositis of these muscles, however no definite abscess formation within. * Extensive skin thickening and subcutaneous fat stranding throughout the left thigh reflective of cellulitis. There are 2 dominant subcutaneous focal areas of inflammation reflective of phlegmonous change/developing abscesses as described. * No evidence of osteomyelitis or involvement of the left hip joint at this time. This critical result was discussed with Dr Gab Castle at 11/14/2021 12:04 AM and it was ascertained that the content and urgency of the report was understood at the time of direct communication. Discharge Plan Discharge Patient Disposition: Left Against Medical Advice Discharge Diagnosis: thigh abscess left Referrals: Physician,Unknown J [Primary Care Provider] - 1 Week Discharge Medications: No Action No Known Home Meds Discharge Orders: Discharge Order (Routine); Ordered 11/17/21 Ordered By: Nehemias Martinez Care Plan Goals: control polysubstance abuse Health Concerns: polysubstance abuse abscess from skin popping Plan of Treatment: pt signed out AMA Assessment: was improving well Discharge Date/Time: 11/16/21 17:20
== END 2021-11-16 17:20 | disposition left against medical advice (07) | DRG 558 ==
LOC: HO.ED 11-14 00:49 → HO.EDOVER 11-14 01:32 → HO.S3 11-14 13:31
PROVIDERS: Admitting Provider Surgery; Emergency Provider Emergency Medicine Emergency Medical Services; Visit Provider Surgery
PROC: 0J9M0ZZ Drainage of Left Upper Leg Subcutaneous Tissue and Fascia, Open Approach (ICD-10-PCS; CPT 27301; principal; 2021-11-14 12:00)
DX: M60.052 Infective myositis, left thigh (principal); L03.116 Cellulitis of left lower limb; F11.20 Opioid dependence, uncomplicated; F17.210 Nicotine dependence, cigarettes, uncomplicated; Z71.6 Tobacco abuse counseling; I10 Essential (primary) hypertension; R56.9 Unspecified convulsions; S02.91XS Unspecified fracture of skull, sequela; V49.9XXS Car occupant (driver) (passenger) injured in unspecified traffic accident, sequela; Z20.822 Contact with and (suspected) exposure to COVID-19; Z88.6 Allergy status to analgesic agent
CPT/HCPCS: 27301; 10061; 36415; 73701; 80053; 80307; 83605; 83690; 85025; 85027; 85610; 85652; 85730; 86140; 87040; 87071; 87147; 87205; 87635; 92950; 99218; 99285; J0131; J0690; J1100; J1170; J1200; J2250; J2270; J2405; J2543; J2795; J3010; J3370; Q9967